=== PATIENT | female | born 1945 | race African-American/Black ===

== ENCOUNTER 2018-09-29 14:24 | Emergency (ER) | payer MEDICARE, OTHER ==
[~2018-09-29] VITALS: Ht 170.2 cm; Wt 75.0 kg
[2018-09-29] MEDS ORDERED: ACETAMINOPHEN 325MG TABLET PO ONE (16:00)
[2018-09-29 18:18] VITALS: BP 158/80
== END 2018-09-29 18:21 | disposition home or self-care (01) ==
LOC: ER 14:24
DX: M46.96 Unspecified inflammatory spondylopathy, lumbar region (principal); E11.9 Type 2 diabetes mellitus without complications
CPT/HCPCS: 72100; 72148; 73030; 99283

== ENCOUNTER 2023-06-21 15:22 | Inpatient (IN) | payer OTHER, MEDICARE ==
[~2023-06-21] VITALS: Ht 165.1 cm; Wt 69.0 kg
[2023-06-21] MEDS: DOXYCYCLINE 100MG/100ML 100 ML IV SCH (08:00)
[2023-06-21 17:10] LABS: BASOPHILS % 0.5 % (0.0-2.0); EOSINOPHILS % 0.7 % (0.0-5.0); HEMATOCRIT. 37.7 % (36.0-48.0); HEMOGLOBIN. 12.5 g/dL (12.0-16.0); LYMPHOCYTES % 13.1 % (20.0-50.0); MEAN CORPUSCULAR HEMOGLOBIN 27.5 pg (28.0-32.0); MEAN CORPUSCULAR HGB CONC 33.1 g/dL (31.0-37.0); MEAN CORPUSCULAR VOLUME 83.3 fL (81.0-99.0); MEAN PLATELET VOLUME 7.8 fl (7.4-10.4); NEUTROPHILS % 78.7 % (40.0-76.0); PLATELET 278 x1000/uL (130-400); RED BLOOD CELL COUNT 4.53 mill/uL (4.2-5.4); RED CELL DISTRIBUTION WIDTH 16.1 % (11.6-14.6)
[2023-06-21 17:28] LABS: CHLORIDE 106 mEq/L (98-107); POTASSIUM 4.3 mEq/L (3.5-5.1); SODIUM 134 mEq/L (136-145)
[2023-06-21 17:29] LABS: CALCIUM 8.4 mg/dL (8.7-10.4); CARBON DIOXIDE 18 mEq/L (21-32)
[2023-06-21] MEDS ORDERED: AZITHROMYCIN 500MG/250ML 250 ML IV SCH (17:30)
[2023-06-21 17:34] LABS: GLUCOSE 93 mg/dL (70-105); UREA NITROGEN BLOOD 17 mg/dL (9-23)
[2023-06-21 17:36] LABS: ALANINE AMINOTRANSFERASE 12 IU/L (10-49); ALBUMIN 3.2 g/dL (3.2-4.8); ASPARTATE AMINOTRANSFERASE 22 IU/L (<34); BILIRUBIN DIRECT 0.9 mg/dL (<=3.0); BILIRUBIN TOTAL 2.4 mg/dL (0.1-1.0); PROTEIN TOTAL 5.9 g/dL (6.0-8.3); TROPONIN I HIGH SENSITIVITY 263 ng/L (3.0-34)
[2023-06-21] MEDS: CEFTRIAXONE 1GM/50ML 50 ML IV ONE (18:43)
[2023-06-21] MEDS: LACTATED RINGERS 1,000 ML IV SCH (20:13)
[2023-06-22] VITALS: BP_SYST 106; BP_DIAS 48; BP_DIAS 98; PULSE 103; RESP 17; TEMP 97.5; TEMP 97.8
[2023-06-22 04:00] VITALS: BP 121/88; PULSE 100; RESP 19; TEMP 97.6
[2023-06-22 08:00] VITALS: BP 112/69; PULSE 96; RESP 20; TEMP 97
[2023-06-22] MEDS ORDERED: DOXYCYCLINE 100MG/100ML 100 ML IV SCH (08:00)
[2023-06-22 08:28] LABS: BASOPHILS % 0.5 % (0.0-2.0); EOSINOPHILS % 2.6 % (0.0-5.0); HEMATOCRIT. 37.4 % (36.0-48.0); HEMOGLOBIN. 12.3 g/dL (12.0-16.0); LYMPHOCYTES % 21.8 % (20.0-50.0); MEAN CORPUSCULAR HEMOGLOBIN 27.4 pg (28.0-32.0); MEAN CORPUSCULAR HGB CONC 32.7 g/dL (31.0-37.0); MEAN CORPUSCULAR VOLUME 83.6 fL (81.0-99.0); MEAN PLATELET VOLUME 7.7 fl (7.4-10.4); MONOCYTES % 9.5 % (2.0-8.0); NEUTROPHILS % 65.6 % (40.0-76.0); PLATELET 248 x1000/uL (130-400); RED BLOOD CELL COUNT 4.48 mill/uL (4.2-5.4); WHITE BLOOD COUNT 6.8 x1000/uL (4.5-11.0)
[2023-06-22 08:35] LABS: CHLORIDE 107 mEq/L (98-107); POTASSIUM 4.3 mEq/L (3.5-5.1); SODIUM 136 mEq/L (136-145)
[2023-06-22 08:36] LABS: CARBON DIOXIDE 21 mEq/L (21-32)
[2023-06-22 08:41] LABS: GLUCOSE 101 mg/dL (70-105); UREA NITROGEN BLOOD 15 mg/dL (9-23)
[2023-06-22] MEDS: ATORVASTATIN CALCIUM 20MG TABLET PO SCH (08:52)
[2023-06-22] MEDS: ENOXAPARIN 40MG/0.4ML SYR SUBCUT SCH (08:52)
[2023-06-22] MEDS ORDERED: ENOXAPARIN 40MG/0.4ML SYR SUBCUT SCH (09:00)
[2023-06-22 10:31] LABS: TROPONIN I HIGH SENSITIVITY 221 ng/L (3.0-34)
[2023-06-22 12:00] VITALS: BP 110/68; PULSE 93; RESP 18; TEMP 97.6
[2023-06-22 15:31] LABS: CLARITY URINE CLOUDY (CLEAR); COLOR URINE DARK YELLOW (YELLOW); GLUCOSE URINE NEGATIVE (NEGATIVE); KETONES URINE TRACE (NEGATIVE); LEUKOCYTE ESTERASE URINE NEGATIVE (NEGATIVE); NITRITE URINE NEGATIVE (NEGATIVE); OCCULT BLOOD URINE TRACE (NEGATIVE); PROTEIN URINE 2+ (NEGATIVE); SPECIFIC GRAVITY URINE 1.027 (1.005-1.030)
[2023-06-22 16:00] VITALS: BP 110/80; PULSE 98; RESP 18; TEMP 98.6
[2023-06-22] MEDS: DOXYCYCLINE 100MG/100ML 100 ML IV SCH (16:27)
[2023-06-22 17:34] LABS: BACTERIA URINE 2+; RBC URINE 0-2 /hpf (0-2); SQUAMOUS EPITHELIAL CELL URINE 1+ /lpf (RARE/1+); WBC URINE 0-2 /hpf (0-2)
[2023-06-22 20:00] VITALS: BP 103/58; PULSE 102; RESP 18; TEMP 97.7
[2023-06-23] VITALS: BP 118/56; PULSE 101; RESP 17; TEMP 97.5
[2023-06-23 04:00] VITALS: BP 115/71; PULSE 96; RESP 20; TEMP 98.6
[2023-06-23 08:21] VITALS: BP 120/90; PULSE 72; RESP 20; TEMP 97.6
[2023-06-23] MEDS ORDERED: ASPIRIN 81MG TABLET PO SCH (10:00)
[2023-06-23 12:10] VITALS: BP 114/78; PULSE 92; RESP 20; TEMP 99
[2023-06-23 16:30] VITALS: BP 120/80; PULSE 106; RESP 20; TEMP 98
[2023-06-23] MEDS: SODIUM HYPOCHLORITE SOLUTION (0.5%)FULL STRENGTH TOP SCH (17:37)
[2023-06-23 20:00] VITALS: BP 130/90; PULSE 100; RESP 18; TEMP 97.7
[2023-06-23] MEDS: DIPHENHYDRAMINE 50MG/ML VIAL IV PRN (21:20)
[2023-06-24] VITALS: BP 117/74; PULSE 107; RESP 16; TEMP 98
[2023-06-24 04:00] VITALS: BP 128/79; PULSE 107; RESP 18; TEMP 97.9
[2023-06-24 07:49] VITALS: BP 145/89; PULSE 111; RESP 19; TEMP 98
[2023-06-24] MEDS: MORPHINE SULFATE 2 MG/ML CPJ (NOT FOR IM USE) IV NR (07:55)
[2023-06-24 12:00] VITALS: BP 137/87; PULSE 118; RESP 18; TEMP 96.4
[2023-06-24] MEDS: ASPIRIN 81MG TABLET PO SCH (13:19)
[2023-06-24] MEDS: CLOPIDOGREL 75MG TABLET PO SCH (13:19)
[2023-06-24] MEDS ORDERED: NALOXONE HCL 0.4MG/ML VIAL IV PRN (15:15)
[2023-06-24 16:00] VITALS: BP 130/84; PULSE 104; RESP 18; TEMP 97
[2023-06-24] MEDS: MORPHINE SULFATE 2 MG/ML CPJ (NOT FOR IM USE) IV PRN (16:10)
[2023-06-24] MEDS ORDERED: HEPARIN 25,000 UNITS PREMIX 250 ML IV SCH ×2 (16:15→17:30)
[2023-06-24] MEDS ORDERED: HEPARIN BOLUS PRN aPTT 30-44 IV (17:30)
[2023-06-24] MEDS ORDERED: HEPARIN BOLUS PRN aPTT <30 IV (17:30)
[2023-06-24] MEDS: HEPARIN 60 UNITS/KG BOLUS IV SCH (17:30)
[2023-06-24] MEDS: FUROSEMIDE 40MG/4ML VIAL IVP SCH (17:35)
[2023-06-24 18:07] LABS: INR 1.3; PROTHROMBIN TIME 14.6 sec (9.6-11.0)
[2023-06-24 20:00] VITALS: BP 118/59; PULSE 70; RESP 18; TEMP 97.6
[2023-06-24] MEDS: HEPARIN 25,000 UNITS PREMIX 250 ML IV SCH (20:47)
[2023-06-25] VITALS: BP 115/70; PULSE 89; RESP 20; TEMP 98
[2023-06-25 02:37] LABS: BASOPHILS % 0.4 % (0.0-2.0); EOSINOPHILS % 0.5 % (0.0-5.0); HEMATOCRIT. 34.7 % (36.0-48.0); HEMOGLOBIN. 11.7 g/dL (12.0-16.0); MEAN CORPUSCULAR HEMOGLOBIN 27.5 pg (28.0-32.0); MEAN CORPUSCULAR HGB CONC 33.6 g/dL (31.0-37.0); MEAN CORPUSCULAR VOLUME 81.8 fL (81.0-99.0); MEAN PLATELET VOLUME 7.7 fl (7.4-10.4); MONOCYTES % 8.4 % (2.0-8.0); NEUTROPHILS % 62.7 % (40.0-76.0); PLATELET 267 x1000/uL (130-400); RED BLOOD CELL COUNT 4.24 mill/uL (4.2-5.4); RED CELL DISTRIBUTION WIDTH 16.6 % (11.6-14.6); WHITE BLOOD COUNT 6.8 x1000/uL (4.5-11.0)
[2023-06-25 02:45] LABS: POTASSIUM 4.6 mEq/L (3.5-5.1)
[2023-06-25 02:46] LABS: CALCIUM 8.2 mg/dL (8.7-10.4)
[2023-06-25 02:51] LABS: CREATININE 1.3 mg/dL (0.6-1.0)
[2023-06-25 04:00] VITALS: BP 122/79; PULSE 105; RESP 20; TEMP 98.4
[2023-06-25 08:00] VITALS: BP 127/83; PULSE 78; RESP 18; TEMP 97.4
[2023-06-25] MEDS: SPIRONOLACTONE 12.5MG TABLET PO SCH (09:00)
[2023-06-25 12:00] VITALS: BP 111/75; PULSE 103; RESP 18; TEMP 97.7
[2023-06-25] MEDS ORDERED: LIDOCAINE HCL 1% 20ML VIAL (Pyxis) INJ ONE (12:41)
[2023-06-25] MEDS ORDERED: IODIXANOL 320MG/ML 100 ML BOTTLE IV ONE ×3 (12:41→16:49)
[2023-06-25] MEDS ORDERED: HEPARIN 1000 UNITS/ML 10ML ONE (12:41)
[2023-06-25] MEDS ORDERED: MIDAZOLAM HCL 2 MG/2 ML VIAL ONE (13:12)
[2023-06-25] MEDS ORDERED: FENTANYL CITRATE/PF 50MCG/ML 2ML VIAL ONE (13:12)
[2023-06-25] MEDS ORDERED: ASPIRIN 81MG TABLET ONE (16:49)
[2023-06-25] MEDS ORDERED: CLOPIDOGREL 75MG TABLET ONE (16:49)
[2023-06-25] MEDS ORDERED: ACETAMINOPHEN 325MG TABLET PO PRN (17:30)
[2023-06-25] MEDS ORDERED: ATROPINE SULFATE 1MG/10ML SYR IV PRN (17:30)
[2023-06-25] MEDS: SODIUM CHLORIDE 0.9% 1,000 ML IV SCH (17:51)
[2023-06-25] MEDS ORDERED: HEPARIN 25,000 UNITS PREMIX 250 ML IV SCH ×2 (19:45→22:00)
[2023-06-25 20:00] VITALS: BP 136/89; PULSE 112; RESP 24; TEMP 97.4
[2023-06-25] MEDS: ATORVASTATIN CALCIUM 40MG TABLET PO SCH (21:25)
[2023-06-25] MEDS: CARVEDILOL 6.25 MG TABLET PO SCH (21:28)
[2023-06-25] MEDS ORDERED: HEPARIN 60 UNITS/KG BOLUS IV SCH (22:00)
[2023-06-26] VITALS (7 sets, daily range): BP systolic 103–133; BP diastolic 75–94; PULSE 81–100; RESP 14–22; TEMP 97.4–98.2
[2023-06-26] MEDS: HEPARIN 25,000 UNITS PREMIX 250 ML IV SCH (03:25)
[2023-06-26] MEDS ORDERED: HEPARIN BOLUS PRN aPTT <30 IV (04:00)
[2023-06-26] MEDS ORDERED: HEPARIN BOLUS PRN aPTT 30-44 IV (04:00)
[2023-06-26 09:22] LABS: BASOPHILS % 0.2 % (0.0-2.0); EOSINOPHILS % 0.2 % (0.0-5.0); HEMATOCRIT. 31.2 % (36.0-48.0); HEMOGLOBIN. 10.3 g/dL (12.0-16.0); LYMPHOCYTES % 15.6 % (20.0-50.0); MEAN CORPUSCULAR HEMOGLOBIN 27.5 pg (28.0-32.0); MEAN CORPUSCULAR VOLUME 83.2 fL (81.0-99.0); MEAN PLATELET VOLUME 7.8 fl (7.4-10.4); MONOCYTES % 7.8 % (2.0-8.0); NEUTROPHILS % 76.2 % (40.0-76.0); PLATELET 272 x1000/uL (130-400); RED BLOOD CELL COUNT 3.75 mill/uL (4.2-5.4); RED CELL DISTRIBUTION WIDTH 16.5 % (11.6-14.6); WHITE BLOOD COUNT 8.8 x1000/uL (4.5-11.0)
[2023-06-26 09:30] LABS: CHLORIDE 103 mEq/L (98-107); POTASSIUM 4.4 mEq/L (3.5-5.1); SODIUM 131 mEq/L (136-145)
[2023-06-26 09:31] LABS: CARBON DIOXIDE 18 mEq/L (21-32)
[2023-06-26 09:36] LABS: CREATININE 1.2 mg/dL (0.6-1.0); GLUCOSE 113 mg/dL (70-105); UREA NITROGEN BLOOD 23 mg/dL (9-23)
[2023-06-26] MEDS ORDERED: LIDOCAINE HCL 1% 10 MG/ML 10ML VIAL ONE (10:52)
[2023-06-26] MEDS: RIVAROXABAN 2.5 MG TABLET PO SCH (17:12)
[2023-06-27] VITALS: BP 101/73; PULSE 81; RESP 15; TEMP 97.8
[2023-06-27 04:00] VITALS: BP 105/66; PULSE 82; RESP 19; TEMP 98
[2023-06-27 08:00] VITALS: BP 110/73; PULSE 78; RESP 15; TEMP 97.6
[2023-06-27 12:00] VITALS: BP 99/71; PULSE 71; RESP 12; TEMP 97.3
[2023-06-27] MEDS ORDERED: CLOP75TA33 MT (15:34)
[2023-06-27] MEDS ORDERED: LOSA25TA26 MT (15:34)
[2023-06-27] MEDS ORDERED: ATOR20TA65 MT (15:34)
[2023-06-27] MEDS ORDERED: ESCI5TAB16 MT (15:34)
[2023-06-27] MEDS ORDERED: ALBU6.7H15 INH (15:34)
[2023-06-27 16:00] VITALS: BP 104/66; PULSE 71; RESP 14; TEMP 98
[2023-06-27 16:41] VITALS: BP 104/66; PULSE 71; TEMP 98; O2SAT 100
== END 2023-06-27 18:10 | DRG 270 ==
LOC: ER 15:22 → EDBEDREQTM 18:17 → EDBEDREQSVC 18:17 → EDBEDREQ 18:17 → 8WST 22:29 → 3WST 06-25 17:30
PROVIDERS: ADMIT Internal Medicine; ATTEND Internal Medicine
PROC: 04CN3ZZ Extirpation of Matter from Left Popliteal Artery, Percutaneous Approach (ICD-10-PCS; principal; 2023-06-25)
PROC: 04CL3ZZ Extirpation of Matter from Left Femoral Artery, Percutaneous Approach (ICD-10-PCS; 2023-06-25)
PROC: B41G110 Fluoroscopy of Left Lower Extremity Arteries using Low Osmolar Contrast, Laser Intraoperative (ICD-10-PCS; 2023-06-25)
PROC: 047L3DZ Dilation of Left Femoral Artery with Intraluminal Device, Percutaneous Approach (ICD-10-PCS; 2023-06-25)
PROC: 047N3DZ Dilation of Left Popliteal Artery with Intraluminal Device, Percutaneous Approach (ICD-10-PCS; 2023-06-25)
PROC: 04CQ3ZZ Extirpation of Matter from Left Anterior Tibial Artery, Percutaneous Approach (ICD-10-PCS; 2023-06-25)
PROC: 047Q3DZ Dilation of Left Anterior Tibial Artery with Intraluminal Device, Percutaneous Approach (ICD-10-PCS; 2023-06-25)
PROC: B410YZZ Fluoroscopy of Abdominal Aorta using Other Contrast (ICD-10-PCS; 2023-06-25)
PROC: B41CYZZ Fluoroscopy of Pelvic Arteries using Other Contrast (ICD-10-PCS; 2023-06-25)
PROC: B41FYZZ Fluoroscopy of Right Lower Extremity Arteries using Other Contrast (ICD-10-PCS; 2023-06-25)
PROC: B41GYZZ Fluoroscopy of Left Lower Extremity Arteries using Other Contrast (ICD-10-PCS; 2023-06-25)
PROC: B44LZZ3 Ultrasonography of Femoral Artery, Intravascular (ICD-10-PCS; 2023-06-25)
PROC: 02HV33Z Insertion of Infusion Device into Superior Vena Cava, Percutaneous Approach (ICD-10-PCS; 2023-06-26)
PROC: B518ZZA Fluoroscopy of Superior Vena Cava, Guidance (ICD-10-PCS; 2023-06-26)
DX: E11.51 Type 2 diabetes mellitus with diabetic peripheral angiopathy without gangrene (principal); I21.A1 Myocardial infarction type 2; I50.23 Acute on chronic systolic (congestive) heart failure; N17.9 Acute kidney failure, unspecified; I70.202 Unspecified atherosclerosis of native arteries of extremities, left leg; R53.1 Weakness; R55 Syncope and collapse; S80.821A Blister (nonthermal), right lower leg, initial encounter; S80.822A Blister (nonthermal), left lower leg, initial encounter; E11.65 Type 2 diabetes mellitus with hyperglycemia; I11.0 Hypertensive heart disease with heart failure; L98.492 Non-pressure chronic ulcer of skin of other sites with fat layer exposed; Z20.822 Contact with and (suspected) exposure to COVID-19; G90.8 Other disorders of autonomic nervous system; X58.XXXA Exposure to other specified factors, initial encounter
CPT/HCPCS: 36415; 36573; 70551; 71045; 80048; 80061; 80076; 81003; 82962; 83036; 83605; 83880; 84145; 84484; 85025; 85347; 87426; 93005; 93306; 93922; 93923; 97162; 97166; 97530; 99291; C1725; C1893; J0696; J1200; J1644; J1650; J1940; J2250; J2270; J3010; J3490; Q9967